=== PATIENT | male | born 1990 | race Caucasian/White ===

== ENCOUNTER 2019-10-03 21:39 | Emergency (ER) | payer MEDICAID ==
[~2019-10-03] VITALS: Ht 177.8 cm; Wt 72.6 kg
--- NOTE | 2019-10-03 22:27 | Emergency Room Report ---
History of Present Illness General Chief Complaint: Lower Extremity Injury Source: Patient Present Illness HPI 28-year-old homeless male here with right foot pain. Patient says that he has been suffering with severe pain in his right midfoot for 3 weeks. Says that he has been walking on it says that he feels pain every time he takes a step. Denies any trauma that he is aware of. Denies IV drug use. No fevers, chills, other joint pain. Allergies: Coded Allergies: No Known Allergies (Unverified , 10/03/19) COVID-19 Screening Contact w/high risk pt: No Experienced COVID-19 symptoms?: No COVID-19 Testing performed PLUMBER'S ASSISTANT: No Nursing Documentation-[facility] Past Medical History: No History, Except For Review of Systems All Other Systems: negative except mentioned in HPI Physical Exam Vital Signs Date Time Temp Pulse Resp B/P (MAP) Pulse Ox O2 Delivery O2 Flow Rate FiO2 10/03/19 21:46 97.9 93 16 119/76 (90) 96 Room Air Sp02 EP Interpretation: reviewed, normal General Appearance: no apparent distress, alert, GCS 15, non-toxic Head: normocephalic, atraumatic Eyes: bilateral eye normal inspection, bilateral eye PERRL ENT: hearing grossly normal, normal pharynx, no angioedema, normal voice Neck: full range of motion, supple/symm/no masses Respiratory: chest non-tender, lungs clear, normal breath sounds, speaking full sentences Cardiovascular #1: regular rate, rhythm, no edema Cardiovascular #2: 2+ carotid (R), 2+ carotid (L), 2+ radial (R), 2+ radial (L) , 2+ dorsalis pedis (R), 2+ dorsalis pedis (L) Gastrointestinal: normal bowel sounds, non tender, soft, non-distended, no guarding, no rebound Rectal: deferred Genitourinary: normal inspection, no CVA tenderness Musculoskeletal: back normal, normal range of motion, calf tenderness, gait/ station normal, other - No obvious deformities. Subjective pain to palpation of the right midfoot. Neurovascularly intact Neurologic: alert, motor strength/tone normal, oriented x3, sensory intact, responsive, speech normal Psychiatric: judgement/insight normal, memory normal, mood/affect normal, no suicidal/homicidal ideation Reflexes: 3+ bicep (R), 3+ bicep (L), 3+ tricep (R), 3+ tricep (L), 3+ knee (R) , 3+ knee (L) Lymphatic: no adenopathy Medical Decision Making Diagnostic Impression: Primary Impression: Foot pain, right ER Course 28-year-old male here with right foot pain. Patient was hemodynamic stable and neurovascular intact in the emergency department. He had a largely normal physical examination aside from some subjective pain on palpation of the right midfoot. Show any acute abnormalities. Patient was given a orthopedic shoe and was neurovascular intact before and after the shoe was placed and was directly inspected by myself. He was given crutches and information to follow- up with orthopedic surgery. Discharged in stable condition. Last Vital Signs Date Time Temp Pulse Resp B/P (MAP) Pulse Ox O2 Delivery O2 Flow Rate FiO2 10/03/19 21:46 97.9 93 16 119/76 (90) 96 Room Air Scripts Ibuprofen* (MOTRIN*) 600 Mg Tablet 600 MG ORAL Q6H PRN for FOR PAIN, #20 TAB 0 Refills Prov: Burke Mcdaniel M.D. 10/03/19 Burke Mcdaniel M.D. Oct 03, 2019 22:27
--- NOTE | 2019-10-03 23:11 | Diagnostic Imaging Report ---
EXAM: XR Right Foot Complete, 3 or More Views CLINICAL HISTORY: PAIN TECHNIQUE: Frontal, lateral and oblique views of the right foot. COMPARISON: No relevant prior studies available. FINDINGS: Bones/joints: Unremarkable. No acute fracture. No dislocation. Soft tissues: Unremarkable. No radiopaque foreign body. IMPRESSION: No acute osseous abnormality.
[2019-10-03] MEDS ORDERED: IBUPROFEN600 M1 ORAL (23:19)
[2019-10-03 23:30] VITALS: BP 115/80
== END 2019-10-03 23:30 | disposition home or self-care (01) ==
LOC: EMR 22:35
DX: M79.671 Pain in right foot (principal)
CPT/HCPCS: 73630; Z7502; 99283